=== PATIENT | male | born 1995 | race Caucasian/White ===

== ENCOUNTER → 2016-10-30 | Outpatient (CLI) | payer MEDICARE, OTHER ==
--- NOTE | 2016-10-30 15:12 | XR ---
EXAMINATION TYPE: XR hand complete RT DATE OF EXAM: 10/30/2016 3:02 PM COMPARISON: NONE HISTORY: Osteoarthritis swelling to knuckles TECHNIQUE: Single AP view right hand. Original order is for three-view bilateral hands. Patient ana er was uncooperative be on the initial single image in the procedure had to be terminated. FINDINGS: There is some soft tissue swelling over the proximal interphalangeal joint spaces of the in dex middle and ring fingers. Some mild soft tissue swelling may be at the little finger proximal inte rphalangeal joint space. The joint spaces appear preserved. No acute fractures are identified. IMPRESSION: 1. Soft tissue swelling probably at the proximal interphalangeal joint spaces of the hand. 2. Exam is limited to a single AP view right hand.
== END | disposition home or self-care (01) ==
LOC: RADXRMAIN 14:21
PROVIDERS: ATTEND Family Medicine
DX: M79.641 Pain in right hand (principal); M79.642 Pain in left hand

== ENCOUNTER → 2016-12-11 | Outpatient (CLI) | payer MEDICARE, OTHER ==
[2016-12-11 12:53] LABS: Basophils % (A) 1 %; CH 31.6; CHCM 34.1; Eosinophils % (A) 0 %; HDW 2.58; HGB 16.4 gm/dL (13.0-17.5); Luc # (Auto) 0.08; Luc % (Auto) 1; Lymphocytes # (A) 1.4 k/uL (1.0-4.8); Lymphocytes % (A) 25 %; MCH 31.3 pg (25.0-35.0); MCHC 33.6 g/dL (31.0-37.0); MCV 93.2 fL (80.0-100.0); Mean Platelet Volume 7.1; Monocytes # (A) 0.3 k/uL (0-1.0); Monocytes % (A) 6 %; Neutrophils # (A) 3.8 k/uL (1.3-7.7); Neutrophils % (A) 67 %; RBC 5.26 m/uL (4.30-5.90); RDW 12.6 % (11.5-15.5); WBC 5.7 k/uL (3.8-10.6); WBC (Perox) 5.78
[2016-12-11 13:17] LABS: Bilirubin, Delta 0.2 mg/dL (0.0-0.2); Total Bilirubin 1.1 mg/dL (0.2-1.3); Total Protein 6.9 g/dL (6.3-8.2)
[2016-12-11 20:49] LABS: Hemoglobin A1C 4.9 % (4.2-6.1)
== END | disposition home or self-care (01) ==
LOC: LABWHC1 12:31
PROVIDERS: ATTEND Nurse Practitioner Family
DX: Z51.81 Encounter for therapeutic drug level monitoring (principal); Z79.899 Other long term (current) drug therapy
CPT/HCPCS: 36415; 80076; 83036; 84146; 85025

== ENCOUNTER 2018-02-20 03:14 | Observation (INO) | payer MEDICARE, OTHER ==
[2018-02-20] MEDS ORDERED: SODIUM CHLORIDE 0.9% 1,000 ML IV ONE (03:24)
--- NOTE | 2018-02-20 03:24 | ED ---
General Adult HPI - General Stated complaint: seizure Time Seen by Provider: 02/20/18 03:15 Source: RN notes reviewed - History of Present Illness Initial comments: This is a 22-year-old male who comes to us from [facility]. Patient was sent to us because he had a 1 minute seizure which was a new onset seizure. The ER physician told me that all labs and CAT scans were normal however because it was a first-time seizure he wanted the patient to see neurology. Patient has been asymptomatic since. Patient is unable to communicate any of his problems or symptoms. No family members with the patient at this time - Related Data Home Medications Medication Instructions Recorded Confirmed Cetirizine HCl 10 mg PO HS 06/11/16 06/11/16 Clindamycin Topical Soln 1 applic TOPICAL BID 06/11/16 06/11/16 [Cleocin-T Topical Soln] FLUoxetine HCL [PROzac] 40 mg PO DAILY 06/11/16 06/11/16 Folic Acid/Multivit-Min/Lutein 1 tab PO DAILY 06/11/16 06/11/16 [Therapeutic-M Tablet] LORazepam [Ativan] 1 mg PO BID PRN 06/11/16 06/11/16 Tetracycline 250mg 250 mg PO DAILY 06/11/16 06/11/16 cloNIDine HCL [Catapres] 0.1 mg PO HS 06/11/16 06/11/16 metFORMIN HCL [Glucophage] 500 mg PO DAILY 06/11/16 06/11/16 risperiDONE 2 mg PO HS 06/11/16 06/11/16 risperiDONE [RisperDAL] 1 mg PO BID@0800,1200 06/11/16 06/11/16 Allergies Allergy/AdvReac Type Severity Reaction Status Date / Time No Known Allergies Allergy Unverified 06/11/16 10:01 Review of Systems ROS Statement: Those systems with pertinent positive or pertinent negative responses have been documented in the HPI. ROS Other: All systems not noted in ROS Statement are negative. Past Medical History Additional Past Medical History / Comment(s): autism History of Any Multi-Drug Resistant Organisms: None Reported Past Surgical History: No Surgical Hx Reported Past Psychological History: ADD/ADHD Smoking Status: Never smoker Past Alcohol Use History: None Reported Past Drug Use History: None Reported General Exam - General Exam Comments Initial Comments: GENERAL: Patient is well-developed and well-nourished. Patient is nontoxic and well- hydrated and is in no acute distress. ENT: Neck is soft and supple. No significant lymphadenopathy is noted. Oropharynx is clear. Moist mucous membranes. Neck has full range of motion without eliciting any pain. EYES: The sclera were anicteric and conjunctiva were pink and moist. Extraocular movements were intact and pupils were equal round and reactive to light. Eyelids were unremarkable. PULMONARY: Unlabored respirations. Good breath sounds bilaterally. No audible rales rhonchi or wheezing was noted. CARDIOVASCULAR: There is a regular rate and rhythm without any murmurs gallops or rubs. ABDOMEN: Soft and nontender with normal bowel sounds. SKIN: Skin is clear with no lesions or rashes and otherwise unremarkable. NEUROLOGIC: Patient is alert and oriented unable to assess since the patient does not speak. Cranial nerves II through XII are grossly intact. MUSCULOSKELETAL: Normal extremities with adequate strength and full range of motion. LYMPHATICS: No significant lymphadenopathy is noted PSYCHIATRIC: Unable to assess Disposition Clinical Impression: New onset seizure Disposition: ADMITTED IP TO THIS HOSP Referrals: Lorne Mckeon DO [Primary Care Provider] - 1-2 days Time of Disposition: 03:24
[2018-02-20] MEDS ORDERED: LORazepam 2 MG/ML INJ IV PRN ×2 (03:26)
[2018-02-20 05:34] VITALS: BMI 25.3
[2018-02-20] MEDS ORDERED: LORazepam 2 MG/ML INJ IM PRN (13:35)
[2018-02-20] MEDS ORDERED: risperiDONE 1 MG TAB PO SCH (13:45)
--- NOTE | 2018-02-20 14:14 | P.HPIM ---
History of Present Illness H&P Date: 02/20/18 Chief Complaint: Seizure This is 22 years old male with past medical history significant for autism presents to the hospital after a [facility]. Patient currently is at baseline mental status according to his father was at the bedside in no acute distress patient is nonverbal according to the father and seems to be at baseline mental status. No head trauma no fall no loss of consciousness reported after that the patient has been hemodynamically stable stable since admission initial workup including blood work and computed tomography scan of the head showed normal finding and neurology at the bedside. Review of Systems 14 systems reviewed and negative except as above Past Medical History Past Medical History: Hypertension, Osteoarthritis (OA) Additional Past Medical History / Comment(s): autism, arthritis in bilat hands/ fingers, oral diabetics to lose weight, father doesn't think pt diagnosed diabetic. History of Any Multi-Drug Resistant Organisms: None Reported Past Surgical History: No Surgical Hx Reported Additional Past Surgical History / Comment(s): extensive dental surgery Smoking Status: Never smoker Medications and Allergies Home Medications Medication Instructions Recorded Confirmed Type Cetirizine HCl 10 mg PO HS 06/11/16 02/20/18 History FLUoxetine HCL [PROzac] 40 mg PO DAILY 06/11/16 02/20/18 History Folic Acid/Multivit-Min/Lutein 1 tab PO DAILY 06/11/16 02/20/18 History [Therapeutic-M Tablet] cloNIDine HCL [Catapres] 0.1 mg PO HS 06/11/16 02/20/18 History metFORMIN HCL [Glucophage] 500 mg PO DAILY 06/11/16 02/20/18 History risperiDONE 2 mg PO HS 06/11/16 02/20/18 History risperiDONE [RisperDAL] 1 mg PO BID@0800,1200 06/11/16 02/20/18 History Minocycline HCl 100 mg PO DAILY 02/20/18 02/20/18 History Allergies Allergy/AdvReac Type Severity Reaction Status Date / Time No Known Allergies Allergy Verified 02/20/18 11:08 Physical Exam Vitals: Vital Signs Temp Pulse Pulse Resp BP BP Pulse Ox 02/20/18 06:05 96.8 F L 57 L 16 94/50 95 02/20/18 05:02 97.5 F L 78 16 96/73 97 02/20/18 04:38 97.6 F 109 H 16 132/94 94 L 02/20/18 03:38 97.8 F 78 16 107/60 97 02/20/18 03:26 98.7 F 70 16 107/60 97 Intake and Output 02/19/18 02/20/18 02/20/18 22:59 06:59 14:59 Intake Total 0 Balance 0 Intake: Oral 0 Other: # Voids 0 Weight 89.5 kg Thrombosis Risk Factor Assmnt - Choose All That Apply Any of the Below Risk Factors Present?: No Other Risk Factors: No Thrombosis Risk Factor Assessment Level: Very Low Risk Assessment and Plan Assessment: 1. Seizure breakthrough. 2. Autism. 3. Nonverbal. 4. Hypertension. 5. Seasonal ALLERGY. 7. Obesity I had long discussion with the father at the bedside regarding treatment plan what I would like to continue his home medication discontinue metformin and informed the father that neurology don't believe that he would require any anti- seizure medication as it's the first episode and we will monitor patient closely have patient's follow-up with his primary care physician outpatient within 7 days patient is stable from the medical standpoint for discharge
[2018-02-20 14:31] VITALS: BP 98/73; PULSE 83; RESP 18; TEMP 97.3
--- NOTE | 2018-02-20 14:46 | P.CNNES ---
History of Present Illness Consult date: 02/20/18 Requesting physician: Kaitlynn Meza Reason for Consult: New onset seizure History of Present Illness: Patient is a 22-year-old male who is being evaluated by the neurology service on 02/20/2018 per the request of Dr. Meza for new onset seizure. Patient has history of autism and lives in an adult foster [facility]way. Patient does visit with family on the weekends. Patient was visiting with family and playing on the laptop computer when he was noted to be making laughing sounds. When his dad looked at him he was not laughing he was trying to take a breath and having a seizure. Dad says the seizure lasted approximately a minute. He did have tonic-like movements. Patient did bite his tongue and lose bladder control during the episode. Patient's dad states he was very calm and mildly lethargic following the seizure. Patient was brought to [facility] and was transferred to [facility] for evaluation. No further seizures noted. Patient is nonverbal and history was obtained from family and chart. Computed tomography scan was done and [facility] which showed no intracranial abnormality. Patient's dad states he is not aware of any new medication that patient is taking. It is not clear what triggered the seizure. Vital signs on admission were temp 98.7, pulse 70, respiratory rate 16, blood pressure 107/60, and O2 saturation 97% on room air. Labs were done at [facility] and were reportedly within normal limits. I did review the computed tomography scan of the brain report which showed no intracranial abnormalities. At the time of my evaluation, patient's resting comfortably in bed and appears to be in no acute distress. Family at the bedside. Review of Systems REVIEW OF SYSTEMS: Otherwise unremarkable and noncontributory. Past Medical History Past Medical History: Hypertension, Osteoarthritis (OA) Additional Past Medical History / Comment(s): autism, arthritis in bilat hands/ fingers, oral diabetics to lose weight, father doesn't think pt diagnosed diabetic. History of Any Multi-Drug Resistant Organisms: None Reported Past Surgical History: No Surgical Hx Reported Additional Past Surgical History / Comment(s): extensive dental surgery Smoking Status: Never smoker Medications and Allergies Home Medications Medication Instructions Recorded Confirmed Type Cetirizine HCl 10 mg PO HS 06/11/16 02/20/18 History FLUoxetine HCL [PROzac] 40 mg PO DAILY 06/11/16 02/20/18 History Folic Acid/Multivit-Min/Lutein 1 tab PO DAILY 06/11/16 02/20/18 History [Therapeutic-M Tablet] cloNIDine HCL [Catapres] 0.1 mg PO HS 06/11/16 02/20/18 History metFORMIN HCL [Glucophage] 500 mg PO DAILY 06/11/16 02/20/18 History risperiDONE 2 mg PO HS 06/11/16 02/20/18 History risperiDONE [RisperDAL] 1 mg PO BID@0800,1200 06/11/16 02/20/18 History Minocycline HCl 100 mg PO DAILY 02/20/18 02/20/18 History Allergies Allergy/AdvReac Type Severity Reaction Status Date / Time No Known Allergies Allergy Verified 02/20/18 11:08 Physical Examination - Vital Signs Vital Signs: Vital Signs Temp Pulse Pulse Resp BP BP Pulse Ox 02/20/18 06:05 96.8 F L 57 L 16 94/50 95 02/20/18 05:02 97.5 F L 78 16 96/73 97 02/20/18 04:38 97.6 F 109 H 16 132/94 94 L 02/20/18 03:38 97.8 F 78 16 107/60 97 02/20/18 03:26 98.7 F 70 16 107/60 97 Intake and Output 02/19/18 02/20/18 02/20/18 22:59 06:59 14:59 Intake Total 0 Balance 0 Intake: Oral 0 Other: # Voids 0 1 Weight 89.5 kg PHYSICAL EXAM: GENERAL APPEARANCE: Patient is a male who appears to be in no acute distress. HEENT: Normocephalic, atraumatic, no facial asymmetry is seen. CARDIOVASCULAR: Regular rate and rhythm. ABDOMEN: nondistended. EXTREMITIES: Show no edema or clubbing. NEUROLOGICAL EXAM: Patient is awake and alert. Patient is nonverbal. Patient is autistic. A meaningful neurological exam could not be performed due to the communication barrier. He does move all 4 extremities purposefully. Patient ambulates without assistance. Assessment and Plan Plan: Impression: 1. New onset seizure 2. Autism Recommendation: It does appear the patient had a witnessed tonic-clonic seizure lasting approximately 1 minute. A postictal state as described following seizure activity. As mentioned above, computed tomography scan of the brain was negative for any intracranial abnormality. I do not feel the need to initiate antiepileptic medication at this time due to the fact this is his first seizure. I do recommend an MRI of the brain to rule out any structural cause. After speaking with family, patient will require sedation for an MRI and they would like this to be done as an outpatient. Patient will need an EEG , but again, family states due to patient's autistic behaviors he will not be able to have an EEG done without sedation. If any further seizures occur, patient will need to be placed on antiepileptic medication. This was discussed with patient's father. When reviewing patient medication, Prozac has the potential side effect of causing seizures. I will recommend possible discontinuation of Prozac and changing to a medication that does not lower seizure threshold. Patient is stable for discharge from a neurological standpoint. He needs to follow up in the office in 1-2 weeks. We will order his MRI and EEG at that time. Continue neurological checks. Continue seizure precautions. I will continue to follow with you. Thank you for allowing me to participate in the care of your patient. Feel free to call with any questions or concerns. I performed an examination of the patient and discussed the management with the ROTARY SHEAR OPERATOR. I have reviewed the ROTARY SHEAR OPERATOR notes and agree with the findings and plan of care.
== END 2018-02-20 14:37 | disposition home or self-care (01) ==
LOC: EC 03:14 → INTOOBSV 03:24 → 4MS4W 03:24
PROVIDERS: ADMIT Internal Medicine; ATTEND Internal Medicine
DX: R56.9 Unspecified convulsions (principal); F84.0 Autistic disorder; F90.9 Attention-deficit hyperactivity disorder, unspecified type; I10 Essential (primary) hypertension; M19.041 Primary osteoarthritis, right hand; M19.042 Primary osteoarthritis, left hand; F80.9 Developmental disorder of speech and language, unspecified; E66.9 Obesity, unspecified; Z68.25 Body mass index [BMI] 25.0-25.9, adult; J30.2 Other seasonal allergic rhinitis; Z79.2 Long term (current) use of antibiotics; Z79.84 Long term (current) use of oral hypoglycemic drugs; Z79.899 Other long term (current) drug therapy
CPT/HCPCS: 99285 ×2; G0378

== ENCOUNTER → 2019-02-18 | Outpatient (CLI) | payer MEDICARE, OTHER ==
[2019-02-18 11:34] LABS: Basophils % (A) 1 %; Eosinophils # (A) 0.1 k/uL (0-0.7); Eosinophils % (A) 1 %; HCT 48.6 % (39.0-53.0); HGB 16.2 gm/dL (13.0-17.5); Lymphocytes # (A) 1.5 k/uL (1.0-4.8); Lymphocytes % (A) 28 %; MCH 30.4 pg (25.0-35.0); MCHC 33.2 g/dL (31.0-37.0); MCV 91.4 fL (80.0-100.0); Monocytes # (A) 0.3 k/uL (0-1.0); Monocytes % (A) 5 %; Neutrophils # (A) 3.2 k/uL (1.3-7.7); Neutrophils % (A) 62 %; Platelet Count 175 k/uL (150-450); RBC 5.32 m/uL (4.30-5.90); RDW 13.7 % (11.5-15.5); WBC 5.2 k/uL (3.8-10.6)
[2019-02-18 12:02] LABS: Albumin 4.2 g/dL (3.5-5.0); Bilirubin, Delta 0.3 mg/dL (0.0-0.2); Bilirubin,Unconjugated 0.7 mg/dL (0.0-1.1)
[2019-02-18 12:19] LABS: T4, Free (Free Thyroxine) 0.88 ng/dL (0.78-2.19)
[2019-02-18 19:55] LABS: Hemoglobin A1C 4.8 % (4.0-6.0)
== END | disposition home or self-care (01) ==
LOC: LABT 10:29
PROVIDERS: ATTEND Nurse Practitioner Family
DX: Z51.81 Encounter for therapeutic drug level monitoring (principal); Z79.899 Other long term (current) drug therapy
CPT/HCPCS: 80061; 80076; 82947; 83036; 84439; 84443; 85025

== ENCOUNTER 2019-03-21 17:17 | Emergency (ER) | payer MEDICARE, OTHER ==
[2019-03-21 17:33] VITALS: BP 120/59; PULSE 88; RESP 24
--- NOTE | 2019-03-21 18:08 | ED ---
General Adult HPI - General Chief complaint: Wound/Laceration Stated complaint: hit head Time Seen by Provider: 03/21/19 17:28 Source: patient, RN notes reviewed, Caregiver Mode of arrival: ambulatory Limitations: no limitations - History of Present Illness Initial comments: 23-year-old nonverbal male presents to the emergency department for laceration. Patient hit his head on the top of a door frame and it caused a laceration. Father states patient is up-to-date on immunizations including tetanus. No loss of consciousness, no vomiting, patient does not seem to be complaining of any pain. Father states the last time he had to have any procedures done patient had to be sedated. States patient does not like being touched at all.Patient has no other complaints at this time including shortness of breath, chest pain, abdominal pain, nausea or vomiting, headache, or visual changes. - Related Data Home Medications Medication Instructions Recorded Confirmed Cetirizine HCl 10 mg PO HS 06/11/16 02/20/18 FLUoxetine HCL [PROzac] 40 mg PO DAILY 06/11/16 02/20/18 Folic Acid/Multivit-Min/Lutein 1 tab PO DAILY 06/11/16 02/20/18 [Therapeutic-M Tablet] cloNIDine HCL [Catapres] 0.1 mg PO HS 06/11/16 02/20/18 metFORMIN HCL [Glucophage] 500 mg PO DAILY 06/11/16 02/20/18 risperiDONE 2 mg PO HS 06/11/16 02/20/18 risperiDONE [RisperDAL] 1 mg PO BID@0800,1200 06/11/16 02/20/18 Minocycline HCl [Minocin] 100 mg PO DAILY 02/20/18 02/20/18 Allergies Allergy/AdvReac Type Severity Reaction Status Date / Time No Known Allergies Allergy Verified 02/20/18 11:08 Review of Systems ROS Statement: Those systems with pertinent positive or pertinent negative responses have been documented in the HPI. ROS Other: All systems not noted in ROS Statement are negative. Past Medical History Past Medical History: Hypertension, Osteoarthritis (OA) Additional Past Medical History / Comment(s): autism, arthritis in bilat hands/fingers, oral diabetics to lose weight, father doesn't think pt diagnosed diabetic. History of Any Multi-Drug Resistant Organisms: None Reported Past Surgical History: No Surgical Hx Reported Additional Past Surgical History / Comment(s): extensive dental surgery Past Psychological History: ADD/ADHD Smoking Status: Never smoker General Exam Limitations: no limitations General appearance: alert, in no apparent distress Head exam: Absent: atraumatic (patient has a 1 cm lac noted to the superficial aspect of the head) Eye exam: Present: normal appearance, PERRL, EOMI. Absent: scleral icterus, conjunctival injection, periorbital swelling ENT exam: Present: normal exam, mucous membranes moist Neck exam: Present: normal inspection, full ROM. Absent: tenderness, meningismus, lymphadenopathy Respiratory exam: Present: normal lung sounds bilaterally. Absent: respiratory distress, wheezes, rales, rhonchi, stridor Cardiovascular Exam: Present: regular rate, normal rhythm, normal heart sounds. Absent: systolic murmur, diastolic murmur, rubs, gallop, clicks Neurological exam: Present: alert, oriented X3, CN II-XII intact Psychiatric exam: Present: normal affect, normal mood Course Vital Signs 03/21/19 17:29 Pulse Rate 88 Respiratory 24 Rate Blood Pressure 120/59 O2 Sat by Pulse 97 Oximetry Medical Decision Making - Medical Decision Making 23-year-old male presents to the emergency department for treatment of laceration to the top of the head. Patient hit his head on a door frame. No loss of consciousness. No focal neuro deficits. Discussed with her and father states that when patient has to procedures then he is to be sedated. Laceration is about 1 cm, non-gaping. Discussed with father and at this point I offered to try one staple. However patient does not like being touched. Father states that he would prefer to leave it open if that is possible. I do think that is fine as this is not a gaping wound is only 1 cm. I offered to clean the area but father states that he usually gets showered by staff at his skilled nursing and enjoys this. States he would rather just take him back there so we could've a shower to have it cleaned rather than try to touch him here. I do think that is reasonable as well. Patient is up-to-date on tetanus. Discussed following up with primary care and monitoring for signs of infection. Discussed returning here for any worsening symptoms. Disposition Clinical Impression: Laceration Disposition: HOME SELF-CARE Condition: Good Instructions (If sedation given, give patient instructions): Laceration (ED) Additional Instructions: Please keep the area clean. Monitor for signs of infection such as spreading or streaking redness. Return here if you have any worsening symptoms. Is patient prescribed a controlled substance at d/c from ED?: No Referrals: Lorne Mckeon DO [Primary Care Provider] - 1-2 days Time of Disposition: 18:07
== END 2019-03-21 18:11 | disposition home or self-care (01) ==
LOC: EC 17:17
DX: S01.01XA Laceration without foreign body of scalp, initial encounter (principal); I10 Essential (primary) hypertension; F90.9 Attention-deficit hyperactivity disorder, unspecified type; F84.0 Autistic disorder; Z79.84 Long term (current) use of oral hypoglycemic drugs; Z79.899 Other long term (current) drug therapy; W22.8XXA Striking against or struck by other objects, initial encounter
CPT/HCPCS: 99282

== ENCOUNTER 2019-04-28 16:24 | Observation (INO) | payer MEDICARE, OTHER ==
[2019-04-28 17:12] LABS: Basophils % (A) 0 %; Eosinophils # (A) 0.1 k/uL (0-0.7); Eosinophils % (A) 1 %; HCT 46.7 % (39.0-53.0); HGB 15.7 gm/dL (13.0-17.5); Lymphocytes # (A) 1.4 k/uL (1.0-4.8); Lymphocytes % (A) 24 %; MCH 30.5 pg (25.0-35.0); MCHC 33.6 g/dL (31.0-37.0); MCV 90.9 fL (80.0-100.0); Mean Platelet Volume 6.6; Monocytes # (A) 0.3 k/uL (0-1.0); Monocytes % (A) 5 %; Neutrophils % (A) 68 %; Platelet Count 182 k/uL (150-450); RBC 5.14 m/uL (4.30-5.90); RDW 12.8 % (11.5-15.5); WBC 5.9 k/uL (3.8-10.6)
[2019-04-28 17:19] LABS: ALT 41 U/L (21-72); AST 42 U/L (17-59); African American GFR (CKD) >90 (>60 ml/min/1.73 sqM); Albumin 4.3 g/dL (3.5-5.0); Alkaline Phosphatase 65 U/L (38-126); Anion Gap 8 mmol/L; Blood Urea Nitrogen 10 mg/dL (9-20); Calcium 9.5 mg/dL (8.4-10.2); Carbon Dioxide 29 mmol/L (22-30); Chloride 105 mmol/L (98-107); Glucose 88 mg/dL (74-99); Potassium 4.5 mmol/L (3.5-5.1); Sodium 142 mmol/L (137-145); Total Bilirubin 0.8 mg/dL (0.2-1.3); Total Protein 6.8 g/dL (6.3-8.2)
--- NOTE | 2019-04-28 18:27 | CT ---
EXAMINATION TYPE: CT brain michaeline wo con DATE OF EXAM: 04/28/2019 COMPARISON: None HISTORY: Seizure CT DLP: 1397.7 mGycm Automated exposure control for dose reduction was used. TECHNIQUE: CT scan of the head and cervical spine are performed without contrast. FINDINGS: Ventricles and sulci appear normal. There is no mass effect nor midline shift. There is n o sign of intracranial hemorrhage. There is some debris in the external auditory canals. Calvarium is intact. The cervical vertebra have normal spacing and alignment. Posterior elements are intact. Facet joints appear normal. Skull base is intact. Prevertebral soft tissues appear normal. IMPRESSION: Negative CT scan of the brain. Negative CT scan cervical spine.
[2019-04-28] MEDS ORDERED: NALOXONE 0.4 MG/ML 1 ML VIAL IV PRN (18:58)
[2019-04-28] MEDS ORDERED: LORazepam 1 MG TAB PO STA (19:09)
--- NOTE | 2019-04-28 19:09 | ED ---
General Adult HPI - General Chief complaint: Seizure Stated complaint: Seizure Time Seen by Provider: 04/28/19 16:38 Source: EMS, RN notes reviewed, old records reviewed Mode of arrival: EMS Limitations: language barrier - History of Present Illness Initial comments: 23-year-old male patient, autistic, nonverbal presents ED for seizure. Patient was reportedly antibiotics when he had approximately 3 minute tonic-clonic seizure. Patient did not have any reported head trauma. Patient reportedly had one prior seizure weeks ago for which she was admitted. His not currently on any antiepileptic medication. Limited history taking ability. Systemic: Pt denies fatigue, fever/chills, rash. Pt denies weakness, night sweats, weight loss. Neuro: Pt denies headache, visual disturbances, syncope or pre-syncope. HEENT: Pt denies ocular discharge or irritation, otalgia, rhinorrhea, pharyngitis or notable lymphadenopathy. Cardiopulmonary: Pt denies chest pain, SOB, heart palpitations, dyspnea on exertion. Abdominal/GI: Pt denies abdominal pain, n/v/d. : Pt denies dysuria, burning w/ urination, frequency/urgency. Denies new onset urinary or bowel incontinence. MSK: Pt denies myalgia, loss of strength or function in extremities. Neuro: Pt denies new onset weakness, paresthesias. - Related Data Home Medications Medication Instructions Recorded Confirmed Cetirizine HCl 10 mg PO HS 06/11/16 02/20/18 FLUoxetine HCL [PROzac] 40 mg PO DAILY 06/11/16 02/20/18 Folic Acid/Multivit-Min/Lutein 1 tab PO DAILY 06/11/16 02/20/18 [Therapeutic-M Tablet] cloNIDine HCL [Catapres] 0.1 mg PO HS 06/11/16 02/20/18 metFORMIN HCL [Glucophage] 500 mg PO DAILY 06/11/16 02/20/18 risperiDONE 2 mg PO HS 06/11/16 02/20/18 risperiDONE [RisperDAL] 1 mg PO BID@0800,1200 06/11/16 02/20/18 Minocycline HCl [Minocin] 100 mg PO DAILY 02/20/18 02/20/18 Allergies Allergy/AdvReac Type Severity Reaction Status Date / Time No Known Allergies Allergy Verified 02/20/18 11:08 Review of Systems ROS Statement: Those systems with pertinent positive or pertinent negative responses have been documented in the HPI. ROS Other: All systems not noted in ROS Statement are negative. Past Medical History Past Medical History: Hypertension, Osteoarthritis (OA) Additional Past Medical History / Comment(s): autism, arthritis in bilat hands/f ingers, oral diabetics to lose weight, father doesn't think pt diagnosed diabetic. History of Any Multi-Drug Resistant Organisms: None Reported Past Surgical History: No Surgical Hx Reported Additional Past Surgical History / Comment(s): extensive dental surgery Past Psychological History: ADD/ADHD Smoking Status: Never smoker General Exam - General Exam Comments Initial Comments: Constitutional: NAD, AOX3, Pt has pleasant affect. HEENT: NC/AT, trachea midline, neck supple, no lymphadenopathy. Posterior pharynx non erythematous, without exudates. External ears appear normal, without discharge. Mucous membranes moist. Eyes PERRLA, EOM intact. There is no scleral icterus. No pallor noted. Cardiopulmonary: RRR, no murmurs, rubs or gallops, no JVD noted. Lungs CTAB in anterior and posterior payton. No peripheral edema. Abdominal exam: Abdomen soft and non-distended. Abdomen non-tender to palpation in all 4 quadrants. Bowel sounds active in LLQ. No hepatosplenomegaly. No ecchymosis Neuro: CN II-XII grossly intact. No nuchal rigidity. No raccon eyes, no levi sign, no hemotympanum. No cervical spinal tenderness. MSK: No posterior calf tenderness bilaterally, homans sign negative bilaterally. Posterior tibialis and radial pulse +2 bilaterally. Sensation intact in upper and lower extremities. Full active ROM in upper and lower extremities, 5/5 stregnth. Limitations: language barrier Course Vital Signs 04/28/19 16:26 Pulse Rate 80 Respiratory 16 Rate Blood Pressure 112/73 O2 Sat by Pulse 95 Oximetry Medical Decision Making - Medical Decision Making 23-year-old male patient, autistic, nonverbal presents ED for seizure. Patient was reportedly antibiotics when he had approximately 3 minute tonic-clonic seizure. Patient did not have any reported head trauma. Patient reportedly had one prior seizure weeks ago for which she was admitted. His not currently on any antiepileptic medication. Limited history taking ability. Pt VSS. Physical exam did not display acute pathology. Of investigations non-impressive. CT brain and C-spine did not display acute pathology. EKG not concerning for acute ischemia. Patient be admitted for neurology consultation. Case discussed with Dr. Phan. - Lab Data Result diagrams: 04/28/19 17:02 04/28/19 17:02 Lab Results 04/28/19 04/28/19 Range/Units 17:02 17:02 WBC 5.9 (3.8-10.6) k/uL RBC 5.14 (4.30-5.90) m/uL Hgb 15.7 (13.0-17.5) gm/dL Hct 46.7 (39.0-53.0) % MCV 90.9 (80.0-100.0) fL MCH 30.5 (25.0-35.0) pg MCHC 33.6 (31.0-37.0) g/dL RDW 12.8 (11.5-15.5) % Plt Count 182 (150-450) k/uL Neutrophils % 68 % Lymphocytes % 24 % Monocytes % 5 % Eosinophils % 1 % Basophils % 0 % Neutrophils # 4.0 (1.3-7.7) k/uL Lymphocytes # 1.4 (1.0-4.8) k/uL Monocytes # 0.3 (0-1.0) k/uL Eosinophils # 0.1 (0-0.7) k/uL Basophils # 0.0 (0-0.2) k/uL Sodium 142 (137-145) mmol/L Potassium 4.5 (3.5-5.1) mmol/L Chloride 105 (98-107) mmol/L Carbon Dioxide 29 (22-30) mmol/L Anion Gap 8 mmol/L BUN 10 (9-20) mg/dL Creatinine 0.91 (0.66-1.25) mg/dL Est GFR (CKD-EPI)AfAm >90 (>60 ml/min/1.73 sqM) Est GFR (CKD-EPI)NonAf >90 (>60 ml/min/1.73 sqM) Glucose 88 (74-99) mg/dL Calcium 9.5 (8.4-10.2) mg/dL Total Bilirubin 0.8 (0.2-1.3) mg/dL AST 42 (17-59) U/L ALT 41 (21-72) U/L Alkaline Phosphatase 65 (38-126) U/L Total Protein 6.8 (6.3-8.2) g/dL Albumin 4.3 (3.5-5.0) g/dL Disposition Clinical Impression: Seizure Disposition: ADMITTED IP TO THIS [facility] Condition: Serious Is patient prescribed a controlled substance at d/c from ED?: No Referrals: Lorne Mckeon DO [Primary Care Provider] - 1-2 days
--- NOTE | 2019-04-28 19:53 | ED ---
Medical Decision Making - Lab Data Result diagrams: 04/28/19 17:02 04/28/19 17:02 Lab Results 04/28/19 04/28/19 Range/Units 17:02 17:02 WBC 5.9 (3.8-10.6) k/uL RBC 5.14 (4.30-5.90) m/uL Hgb 15.7 (13.0-17.5) gm/dL Hct 46.7 (39.0-53.0) % MCV 90.9 (80.0-100.0) fL MCH 30.5 (25.0-35.0) pg MCHC 33.6 (31.0-37.0) g/dL RDW 12.8 (11.5-15.5) % Plt Count 182 (150-450) k/uL Neutrophils % 68 % Lymphocytes % 24 % Monocytes % 5 % Eosinophils % 1 % Basophils % 0 % Neutrophils # 4.0 (1.3-7.7) k/uL Lymphocytes # 1.4 (1.0-4.8) k/uL Monocytes # 0.3 (0-1.0) k/uL Eosinophils # 0.1 (0-0.7) k/uL Basophils # 0.0 (0-0.2) k/uL Sodium 142 (137-145) mmol/L Potassium 4.5 (3.5-5.1) mmol/L Chloride 105 (98-107) mmol/L Carbon Dioxide 29 (22-30) mmol/L Anion Gap 8 mmol/L BUN 10 (9-20) mg/dL Creatinine 0.91 (0.66-1.25) mg/dL Est GFR (CKD-EPI)AfAm >90 (>60 ml/min/1.73 sqM) Est GFR (CKD-EPI)NonAf >90 (>60 ml/min/1.73 sqM) Glucose 88 (74-99) mg/dL Calcium 9.5 (8.4-10.2) mg/dL Total Bilirubin 0.8 (0.2-1.3) mg/dL AST 42 (17-59) U/L ALT 41 (21-72) U/L Alkaline Phosphatase 65 (38-126) U/L Total Protein 6.8 (6.3-8.2) g/dL Albumin 4.3 (3.5-5.0) g/dL - EKG Data -: EKG Interpreted by Me EKG Comments: Surgical rate 72, painful and 54, QR is 90, QT/QTC 336/3677. No sinus rhythm, normal EKG. Disposition Clinical Impression: Seizure Disposition: ADMITTED IP TO THIS HOSP Condition: Serious Is patient prescribed a controlled substance at d/c from ED?: No
[2019-04-28] MEDS ORDERED: levETIRAcetam IV 1,000 MG in SALINE 1 100ML.BAG IVPB STA (20:20)
[2019-04-28] MEDS ORDERED: MAGNESIUM HYDROXIDE 2,400 MG/10 ML CUP PO PRN (22:13)
[2019-04-28] MEDS ORDERED: ACETAMINOPHEN TAB 325 MG TAB PO PRN (22:13)
[2019-04-28] MEDS ORDERED: [UNRECOGNIZED DRUG - OTHER] PO PRN (22:13)
[2019-04-28] MEDS ORDERED: IBUPROFEN 200 MG TAB PO PRN (22:13)
[2019-04-28] MEDS ORDERED: LORazepam 1 MG TAB PO PRN (22:13)
[2019-04-28] MEDS ORDERED: LORazepam 2 MG/ML INJ IV PRN (22:18)
[2019-04-28] MEDS: cloNIDine HCL 0.2 MG TAB PO SCH (23:35)
[2019-04-28] MEDS: LORATADINE 10 MG TAB PO SCH (23:35)
[2019-04-28] MEDS: risperiDONE 1 MG TAB PO SCH (23:35)
[2019-04-29] MEDS ORDERED: levETIRAcetam IV 1,000 MG in SALINE 1 100ML.BAG IVPB SCH (09:00)
[2019-04-29] MEDS: MINOCYCLINE 50 MG CAP PO SCH (10:30)
[2019-04-29] MEDS: FLUoxetine HCL 20 MG CAP PO SCH ×2 (10:31)
[2019-04-29] MEDS: MULTIVITAMINS, THERA 1 EACH TAB PO SCH (10:31)
[2019-04-29] MEDS: levETIRAcetam 500 MG TAB PO SCH ×2 (10:31→22:02)
[2019-04-29] MEDS: NON-FORMULARY DRUG (Clindamycin Topical Soln 1 APPLIC) TOPICAL SCH (10:32)
[2019-04-29] MEDS: risperiDONE 1 MG TAB PO SCH ×2 (11:00→15:12)
--- NOTE | 2019-04-29 11:21 | P.CNNES ---
History of Present Illness Consult date: 04/29/19 Requesting physician: Payam Phan Reason for Consult: Recurrent seizures Chief complaint: Seizure History of Present Illness: This is a 23 yo male h/o autism who was evaluated by neurology back in 02/2018 for new-onset seizure. Patient was apparently visiting with family and playing on the laptop computer when he was noted to be making laughing sounds. When his father looked at him, he was no longer laughing, trying to take a breath and then went on to have a seizure. The witnessed seizure lasted around 1 minute. He did have tonic activity. There was tongue biting and bladder incontinence. He was reportedly very calm and mildly lethargic following the ictal event. At that time, CT of the head was done that did not show acute intracranial abnormalities. MRI brain and EEG were not done due to the fact that the patient would need to be heavily sedated, and the family did not want to pursue that route. His neurologic exam was noted to be nonfocal. He was not placed on anticonvulsant therapy at that time. But, neurology did comment that if the patient went on to have further seizures, then he would need to be placed on antiepileptic medication. Fast forwarding to 04/28/2019, patient presented to our emergency room after a 3 minute tonic-clonic seizure. There was no report of head trauma. He was reportedly on the antibiotics, details unknown. He was loaded and continued on levetiracetam. No further seizure activity has been observed since admission. The patient cannot provide any meaningful history. My his stroke or information was obtained by reviewing available medical records in EMR. Review of Systems Unable to obtain from patient due to his autism/non-verbal state Past Medical History Past Medical History: Hypertension, Osteoarthritis (OA), Seizure Disorder Additional Past Medical History / Comment(s): autism, arthritis in bilat hands/fingers, oral diabetics to lose weight, father doesn't think pt diagnosed diabetic, history of seizures. History of Any Multi-Drug Resistant Organisms: None Reported Past Surgical History: No Surgical Hx Reported Additional Past Surgical History / Comment(s): extensive dental surgery Past Psychological History: ADD/ADHD Additional Psychological History / Comment(s): mid functional Autism Smoking Status: Never smoker Past Alcohol Use History: None Reported Past Drug Use History: None Reported Medications and Allergies Home Medications Medication Instructions Recorded Confirmed Type Cetirizine HCl 10 mg PO HS@2100 06/11/16 04/28/19 History FLUoxetine HCL [PROzac] 40 mg PO DAILY@0800 06/11/16 04/28/19 History Folic Acid/Multivit-Min/Lutein 1 tab PO DAILY@0800 06/11/16 04/28/19 History [Therapeutic-M Tablet] risperiDONE 2 mg PO HS@2100 06/11/16 04/28/19 History risperiDONE [RisperDAL] 1 mg PO BID@0800,1200 06/11/16 04/28/19 History Minocycline HCl [Minocin] 100 mg PO DAILY@0800 02/20/18 04/28/19 History Acetaminophen Tab [Tylenol Tab] 650 mg PO Q4H PRN 04/28/19 04/28/19 History Clindamycin Topical Soln 1 applic TOPICAL BID@0800,2100 04/28/19 04/28/19 History [Cleocin-T Topical Soln] FLUoxetine HCL [PROzac] 20 mg PO DAILY@0800 04/28/19 04/28/19 History Ibuprofen [Motrin Ib] 200 mg PO Q6H PRN 04/28/19 04/28/19 History Cristiano-Tin Liquid 1 dose PO DIRECTED PRN 04/28/19 04/28/19 History LORazepam [Ativan] 1 mg PO DAILY PRN 04/28/19 04/28/19 History Magnesium Hydroxide [Milk of 2,400 mg PO DAILY PRN 04/28/19 04/28/19 History Magnesia] cloNIDine HCL [Catapres] 0.2 mg PO HS@209904/28/19 04/28/19 History Allergies Allergy/AdvReac Type Severity Reaction Status Date / Time No Known Allergies Allergy Verified 04/28/19 19:21 Physical Examination - Vital Signs Vital Signs: Vital Signs Temp Pulse Pulse Resp BP BP BP 04/29/19 08:10 97.4 F L 63 16 91/75 04/29/19 05:00 97.9 F 63 15 04/28/19 21:04 97.7 F 66 20 102/60 04/28/19 20:06 98.0 F 60 20 117/66 04/28/19 19:57 70 20 116/74 04/28/19 19:08 98.6 F 04/28/19 16:26 80 16 112/73 Pulse Ox 04/29/19 08:10 97 04/29/19 05:00 97 04/28/19 21:04 98 04/28/19 20:06 98 04/28/19 19:57 04/28/19 19:08 04/28/19 16:26 95 Intake and Output 04/28/19 04/29/19 04/29/19 22:59 06:59 14:59 Other: Voiding Method Toilet Diaper # Voids 0 # Bowel Movements 1 Weight 95.254 kg Gen NAD Pleasant and cooperative HEENT NCAT Sclera without icterus O/P clear Neck Supple No carotid bruit Cor RRR no m/r/g Lungs CTAB Abd Soft NTND +BS Ext Warm to touch No edema Neuro MS Somnolent but arousable to normal voice and tactile stimuli Follows one-step commands non-verbal CN PERRL VFF no APD EOMI no nystagmus or DARLIN No facial asymmetry Masseter's symmetric Hearing intact to normal voice bilaterally Equal elevation of palate Tongue midline Sym SCM bilaterally Motor Normal bulk Some paratonia No tremors BANDA x4 against resistance Sens Intact to LT x4 No neglect Coord Unable to assess DTRs 2+/4 sym throughout Toes downgoing bilaterally No clonus at achilles Gait Deferred Results - Laboratory Findings CBC and BMP: 04/28/19 17:02 04/28/19 17:02 - Diagnostic Findings Additional findings: CT Head/C-spine wo cont 04/28/19. No ICH. No cervical fracture. Nil acute. I have reviewed neuroimages myself. Assessment and Plan Assessment: Recurrent apparently unprovoked seizures, unless he was taking an antibiotic that's classically associated with lowering seizure threshold Plan: -Continue LEV 500mg q12h CrCl >80 -Seizure precautions -Per records MRI Brain and EEG were not obtained previously due to his inability to be still without heavy sedation -Patient does not drive, though common sense should be exercised in avoiding any physical activity that may endanger patient and/or others should he have recurrent seizure activity -DVT prophylaxis -If he has no further seizure activity >24 hours, may discharge from acute care and plan for follow-up with outpatient neurology within one week -Neurology will be available again on 05/02/19. Thank you for this consultation. Please call with ?. Time with Patient: Greater than 30 (Time spent in direct patient care/coordination of care: 70 minutes)
--- NOTE | 2019-04-29 13:13 | P.HPIM ---
History of Present Illness H&P Date: 04/29/19 This is a 23-year-old female patient of Dr. Mckeon with past medical history of autism, seizure disorder, resides in a nursing home. Baseline patient is nonverbal. Patient had his first seizure in February 2018 and was not placed on anti-epileptic medication at that time. Patient was seen by Dr. Horan with concern that Prozac with decreased seizure threshold. Patient came into [facility] emergency center for evaluation of seizure. Patient apparently had a 3 minute tonic-clonic seizure. No reported head trauma. Computed tomography scan of the brain and see spine negative. CBC and CMP unremarkable. Patient was given 1 dose of oral Ativan 1 mg and started on IV Keppra. Patient has received 1 dose of 1000 mg. Patient was admitted to the [facility] floor. This morning, patient has pulled 5 IVs out and is pulling off rn cardiac. Both will be discontinued. We will attempt to administer Keppra orally. Consult in place with neurology. Patient has been seen by Dr. Washington with recommendations for Keppra 500 mg every 12 hours, continue seizure precautions. If patient has no further seizure activity greater than 24 hours he is cleared for discharge home with neurology follow-up in one week. Review of Systems ROS unobtainable: due to mental status Past Medical History Past Medical History: Hypertension, Osteoarthritis (OA), Seizure Disorder Additional Past Medical History / Comment(s): autism, arthritis in bilat hands/fingers, oral diabetics to lose weight, father doesn't think pt diagnosed diabetic, history of seizures. History of Any Multi-Drug Resistant Organisms: None Reported Past Surgical History: No Surgical Hx Reported Additional Past Surgical History / Comment(s): extensive dental surgery Past Psychological History: ADD/ADHD Additional Psychological History / Comment(s): mid functional Autism Smoking Status: Never smoker Past Alcohol Use History: None Reported Past Drug Use History: None Reported - Past Family History Father Additional Family Medical History / Comment(s): Unable to obtain family history due to patient's status Medications and Allergies Home Medications Medication Instructions Recorded Confirmed Type Cetirizine HCl 10 mg PO HS@2100 06/11/16 04/28/19 History FLUoxetine HCL [PROzac] 40 mg PO DAILY@0800 06/11/16 04/28/19 History Folic Acid/Multivit-Min/Lutein 1 tab PO DAILY@0800 06/11/16 04/28/19 History [Therapeutic-M Tablet] risperiDONE 2 mg PO HS@2100 06/11/16 04/28/19 History risperiDONE [RisperDAL] 1 mg PO BID@0800,1200 06/11/16 04/28/19 History Minocycline HCl [Minocin] 100 mg PO DAILY@0800 02/20/18 04/28/19 History Acetaminophen Tab [Tylenol Tab] 650 mg PO Q4H PRN 04/28/19 04/28/19 History Clindamycin Topical Soln 1 applic TOPICAL BID@0800,2100 04/28/19 04/28/19 H istory [Cleocin-T Topical Soln] FLUoxetine HCL [PROzac] 20 mg PO DAILY@0800 04/28/19 04/28/19 History Ibuprofen [Motrin Ib] 200 mg PO Q6H PRN 04/28/19 04/28/19 History Cristiano-Tin Liquid 1 dose PO DIRECTED PRN 04/28/19 04/28/19 History LORazepam [Ativan] 1 mg PO DAILY PRN 04/28/19 04/28/19 History Magnesium Hydroxide [Milk of 2,400 mg PO DAILY PRN 04/28/19 04/28/19 History Magnesia] cloNIDine HCL [Catapres] 0.2 mg PO HS@2100 04/28/19 04/28/19 History Allergies Allergy/AdvReac Type Severity Reaction Status Date / Time No Known Allergies Allergy Verified 04/28/19 19:21 Physical Exam Vitals: Vital Signs Temp Pulse Pulse Resp BP BP BP 04/29/19 05:00 97.9 F 63 15 04/28/19 21:04 97.7 F 66 20 102/60 04/28/19 20:06 98.0 F 60 20 117/66 04/28/19 19:57 70 20 116/74 04/28/19 19:08 98.6 F 04/28/19 16:26 80 16 112/73 Pulse Ox 04/29/19 05:00 97 04/28/19 21:04 98 04/28/19 20:06 98 04/28/19 19:57 04/28/19 19:08 04/28/19 16:26 95 Intake and Output 04/28/19 04/29/19 04/29/19 22:59 06:59 14:59 Other: Voiding Method Toilet Diaper # Voids 0 # Bowel Movements 1 Weight 95.254 kg Gen: This is a 23-year-old obese male. He is resting in bed and appears to be comfortable. Patient is nonverbal. HEENT: Head is atraumatic, normocephalic. Pupils equal, round. Sclerae is anicteric. NECK: Supple. No JVD. No lymphadenopathy. No thyromegaly. LUNGS: Clear to auscultation. No wheezes or rhonchi. No intercostal retractions. HEART: Regular rate and rhythm. No murmur. ABDOMEN: Soft. Bowel sounds are present. No masses. No tenderness. EXTREMITIES: No pedal edema. No calf tenderness. NEUROLOGICAL: Patient is awake, alert . Cranial nerves 2 through 12 are grossly intact. Results CBC & Chem 7: 04/28/19 17:02 04/28/19 17:02 Thrombosis Risk Factor Assmnt - Choose All That Apply Any of the Below Risk Factors Present?: No Other Risk Factors: No Other congenital or acquired thrombophilia - If yes, enter type in comment: No Thrombosis Risk Factor Assessment Level: Very Low Risk Assessment and Plan Plan: 1. Seizure disorder. Patient transitioned to oral Keppra 500 mg twice daily. Neurology consult appreciated. Continue seizure precautions. No further workup. Plan for discharge home tomorrow morning if no recurrence of seizure activity. 2. Autism, nonverbal. Continue Prozac 60 mg daily, Ativan as needed, Risperdal 1 mg at 8 AM and 1200, 2 mg at bedtime. 3. Hypertension. Continue clonidine 0.2 mg at bedtime 4. Seasonal ALLERGIES. Continue Claritin. 5. Obesity. 6. DVT prophylaxis. RONALD huston. Patient will be admitted to the hospital for a minimum of 2 night stay. Discharge plan: Return to nursing home on Thursday. Impression and plan of care have been directed as dictated by the signing physician. Destiny Tolbert nurse practitioner acting as scribe for signing physician.
[2019-04-29 13:35] VITALS: BMI 28.5
[2019-04-29] MEDS: LORATADINE 10 MG TAB PO SCH (22:03)
[2019-04-29] MEDS: cloNIDine HCL 0.2 MG TAB PO SCH (22:03)
[2019-04-30 01:18] VITALS: BP 98/58; PULSE 50; RESP 15; TEMP 97.8
[2019-04-30] MEDS: NON-FORMULARY DRUG (Clindamycin Topical Soln 1 APPLIC) TOPICAL SCH ×2 (01:20→09:18)
[2019-04-30] MEDS: risperiDONE 1 MG TAB PO SCH ×3 (01:50→12:13)
[2019-04-30] MEDS: FLUoxetine HCL 20 MG CAP PO SCH ×2 (09:16)
[2019-04-30] MEDS: MULTIVITAMINS, THERA 1 EACH TAB PO SCH (09:16)
[2019-04-30] MEDS: MINOCYCLINE 50 MG CAP PO SCH (09:17)
[2019-04-30] MEDS: levETIRAcetam 500 MG TAB PO SCH (09:18)
--- NOTE | 2019-04-30 22:44 | P.DS ---
Providers Date of admission: 04/28/19 18:51 Expected date of discharge: 04/30/19 Attending physician: Osito Fitch Consults: 04/28/19 20:20 Consult Physician Routine Consulting Provider: Hilton Washington Consult Reason/Comments: recurrent seizurew Do you want consulting provider notified?: Yes [facility] care physician[facility] [place] [facility] Course: This is a 23-year-old female patient of Dr. Mckeon with past medical history of autism, seizure disorder, [facility]. Baseline patient is nonverbal. Patient had his first seizure in February 2018 and was not placed on anti-epileptic medication at that time. Patient was seen by Dr. Horan with concern that Prozac with decreased seizure threshold. Patient came into [facility] emergency center for evaluation of seizure. Patient apparently had a 3 minute tonic-clonic seizure. No reported head trauma. Computed tomography scan of the brain and see spine negative. CBC and CMP unremarkable. Patient was given 1 dose of oral Ativan 1 mg and started on IV Keppra. Patient has received 1 dose of 1000 mg. Patient was admitted to the [facility] floor. This morning, patient has pulled 5 IVs out and is pulling off monitoring and evaluation advisor. Both will be discontinued. We will attempt to administer Keppra orally. Consult in place with neurology. Patient has been seen by Dr. Washington with recommendations for Keppra 500 mg every 12 hours, continue seizure precautions. If patient has no further seizure activity greater than 24 hours he is cleared for discharge home with neurology follow-up in one week. 04/30, patient continues to do well neurologically, no seizures within the past 24 hours, patient is on Keppra 500 mg every 12 hours with no relapse, seems to be elusive with conversation today, secondary to autistic disorder, remains to be nonverbal, no events for aspiration, and no motor weakness over the past 24 hours, patient is going to be discharged to [facility] [employer] [facility] [employer] today, outpa tient follow-up with neurology, Dr. Horan Final diagnosis At [facility] 1. Seizure disorder. Patient transitioned to oral Keppra 500 mg twice daily. Neurology consult appreciated. Continue seizure precautions. No further workup. Discharge stable with Keppra maintenance twice a day outpatient levels for Keppra outpatient follow-up with Dr. Horan 2. Autism, nonverbal. Continue Prozac 60 mg daily, Ativan as needed, Risperdal 1 mg at 8 AM and 1200, 2 mg at bedtime. 3. Hypertension. Continue clonidine 0.2 mg at bedtime 4. Seasonal ALLERGIES. Continue Claritin. 5. Obesity. 6. DVT prophylaxis. RONALD huston. Discharge plan: Return to [facility] [employer] [facility] [employer] stable Patient Condition at Discharge: Serious Plan - Discharge Summary Discharge Rx Participant: No New Discharge Prescriptions: New levETIRAcetam [Keppra] 500 mg PO Q12HR #60 tab Continue risperiDONE [RisperDAL] 1 mg PO BID@0800,1200 risperiDONE 2 mg PO HS@2099 Cetirizine HCl 10 mg PO HS@2100 Folic Acid/Multivit-Min/Lutein [Therapeutic-M Tablet] 1 tab PO DAILY@0800 FLUoxetine HCL [PROzac] 40 mg PO DAILY@0800 Minocycline HCl [Minocin] 100 mg PO DAILY@0800 LORazepam [Ativan] 1 mg PO DAILY PRN PRN Reason: Agitation Acetaminophen Tab [Tylenol] 650 mg PO Q4H PRN PRN Reason: Fever And/ Or Pain Cristiano-Tin Liquid 1 dose PO DIRECTED PRN PRN Reason: Constipation Ibuprofen [Motrin Ib] 200 mg PO Q6H PRN PRN Reason: Fever And/ Or Pain FLUoxetine HCL [PROzac] 20 mg PO DAILY@0800 cloNIDine HCL [Catapres] 0.2 mg PO HS@2100 Clindamycin Topical Soln [Cleocin-T Topical Soln] 1 applic TOPICAL BID@0800,2099 Magnesium Hydroxide [Milk of Magnesia] 2,400 mg PO DAILY PRN PRN Reason: Constipation Discharge Medication List Cetirizine HCl 10 mg PO HS@209906/11/16 [History] FLUoxetine HCL [PROzac] 40 mg PO DAILY@0806/11/16 [History] Folic Acid/Multivit-Min/Lutein [Therapeutic-M Tablet] 1 tab PO DAILY@79906/11/16 [History] risperiDONE 2 mg PO HS@209906/11/16 [History] risperiDONE [RisperDAL] 1 mg PO BID@0800,1200 06/11/16 [History] Minocycline HCl [Minocin] 100 mg PO DAILY@0800 02/20/18 [History] Acetaminophen Tab [Tylenol] 650 mg PO Q4H PRN 04/28/19 [History] Clindamycin Topical Soln [Cleocin-T Topical Soln] 1 applic TOPICAL BID@0800,209904/28/19 [History] FLUoxetine HCL [PROzac] 20 mg PO DAILY@0800 04/28/19 [History] Ibuprofen [Motrin Ib] 200 mg PO Q6H PRN 04/28/19 [History] Cristiano-Tin Liquid 1 dose PO DIRECTED PRN 04/28/19 [History] LORazepam [Ativan] 1 mg PO DAILY PRN 04/28/19 [History] Magnesium Hydroxide [Milk of Magnesia] 2,400 mg PO DAILY PRN 04/28/19 [History] cloNIDine HCL [Catapres] 0.2 mg PO HS@209904/28/19 [History] levETIRAcetam [Keppra] 500 mg PO Q12HR #60 tab 04/29/19 [Rx] Follow up Appointment(s)/Referral(s): Víctor Horan MD [Medical Doctor] - 1 Week Lorne Mckeon DO [Primary Care Provider] - 1 Week Patient Instructions/Handouts: Nonepileptic Seizures (DC) Activity/Diet/Wound Care/Special Instructions: Please call [facility] #[phone] for transportation on discharge. Paper prescription for Keppra provided on the patient chart as requested by [facility] [employer] [facility] [employer]. Discharge Disposition: OTHER INSTITUTION NOT DEFINED
== END 2019-04-30 16:16 | disposition home or self-care (01) ==
LOC: EC 16:24 → INTOOBSV 18:51 → 4MS4W 18:51 → 4SSUR 04-29 05:03
PROVIDERS: ADMIT Internal Medicine; ATTEND Internal Medicine
DX: G40.909 Epilepsy, unspecified, not intractable, without status epilepticus (principal); F84.0 Autistic disorder; I10 Essential (primary) hypertension; J30.2 Other seasonal allergic rhinitis; M19.041 Primary osteoarthritis, right hand; M19.042 Primary osteoarthritis, left hand; E66.9 Obesity, unspecified; Z68.28 Body mass index [BMI] 28.0-28.9, adult; F90.9 Attention-deficit hyperactivity disorder, unspecified type; Z79.899 Other long term (current) drug therapy
CPT/HCPCS: 96365; 99285; 36415; 93005; 80053; 85025; 72125; 70450; G0378 ×4; J1953

== ENCOUNTER → 2019-07-04 | Outpatient (CLI) | payer MEDICARE, OTHER | END | disposition home or self-care (01) | LOC: LABWHC1 09:08 | PROVIDERS: ATTEND Psychiatry & Neurology Pain Medicine | DX: G40.909 Epilepsy, unspecified, not intractable, without status epilepticus (principal); Z51.81 Encounter for therapeutic drug level monitoring | CPT/HCPCS: 36415; 80177 ==

== ENCOUNTER → 2020-07-25 | Outpatient (CLI) | payer MEDICARE, OTHER | END | disposition home or self-care (01) | LOC: LABWHC1 13:10 | PROVIDERS: ATTEND Family Medicine | DX: Z20.828 Contact with and (suspected) exposure to other viral communicable diseases (principal) | CPT/HCPCS: U0003; C9803 ==

== ENCOUNTER → 2020-08-16 | Outpatient (CLI) | payer MEDICARE, OTHER ==
[2020-08-16 12:03] LABS: Basophils % (A) 1 %; Eosinophils % (A) 1 %; HCT 52.1 % (39.0-53.0); Lymphocytes % (A) 21 %; MCH 30.9 pg (25.0-35.0); MCHC 32.7 g/dL (31.0-37.0); MCV 94.4 fL (80.0-100.0); Mean Platelet Volume 7.1; Monocytes # (A) 0.4 k/uL (0-1.0); Monocytes % (A) 7 %; Neutrophils # (A) 3.5 k/uL (1.3-7.7); Neutrophils % (A) 69 %; Platelet Count 161 k/uL (150-450); RBC 5.52 m/uL (4.30-5.90); RDW 12.7 % (11.5-15.5); WBC 5.1 k/uL (3.8-10.6)
[2020-08-16 15:00] LABS: Albumin 4.7 g/dL (3.80-4.90); Albumin/Globulin Ratio 2.04 (1.60-3.17); Bilirubin, Conjugated 0.4 mg/dL (0.20-0.40); Bilirubin,Unconjugated 0.8 mg/dL; Chol/HDL Ratio 3.06; Globulin 2.3 g/dL (1.6-3.3); LDL Cholesterol,Calculated 95.4 mg/dL (0.0-131.0); Total Bilirubin 1.2 mg/dL (0.3-1.2); VLDL Calculation 11.6 mg/dL (5.00-40.00)
[2020-08-16 15:07] LABS: T4, Free (Free Thyroxine) 1.1 ng/dL (0.80-1.80)
[2020-08-16 16:34] LABS: Hemoglobin A1C 4.5 % (4.0-6.0)
== END | disposition home or self-care (01) ==
LOC: LABWHC1 10:28
PROVIDERS: ATTEND Nurse Practitioner Family
DX: Z51.81 Encounter for therapeutic drug level monitoring (principal); Z79.899 Other long term (current) drug therapy
CPT/HCPCS: 36415; 80061; 80076; 82947; 83036; 84439; 84443; 85025

== ENCOUNTER 2021-07-01 10:43 | Emergency (ER) | payer MEDICARE, OTHER ==
[2021-07-01 12:09] VITALS: BP 105/74; PULSE 62; RESP 18; TEMP 98
--- NOTE | 2021-07-01 12:44 | ED ---
General Adult HPI - General Chief complaint: Back Pain/Injury Stated complaint: back pain Time Seen by Provider: 07/01/21 12:31 Source: Caregiver Mode of arrival: ambulatory Limitations: language barrier - History of Present Illness Initial comments: Dictation was produced using [employer] dictation software. please excuse any grammatical, word or spelling errors. Chief Complaint: 26-year-old male brought in by [facility] for possible back pain versus abdominal pain History of Present Illness: Patient is a 26-year-old male he is nonverbal at baseline. Patient has autism. Patient is brought in by [facility] staff for concerns of back pain. Patient has been noticed to be walking hunched over. Patient does very vigorous movements of jumping. They're concerned that perhaps patient hurt his back. He's been given Motrin and Tylenol. According to staff he seemingly appears much improved after the Motrin Tylenol. However they're worried that when the Motrin Tylenol wears off he starts hunching over again. Patient has not shown any signs of respiratory distress. He has had no fevers or cough. The ROS documented in this emergency department record has been reviewed and confirmed by me. Those systems with pertinent positive or negative responses have been documented in the HPI. All other systems are other negative and/or noncontributory. PHYSICAL EXAM: General Impression: Alert, follows commands, not in acute distress HEENT: Normocephalic atraumatic, extra-ocular movements intact, pupils equal and reactive to light bilaterally, mucous membranes moist. Cardiovascular: Heart regular rate and rhythm Chest: Able to complete full sentences, no retractions, no tachypnea Abdomen: abdomen soft, non-tender, non-distended, no organomegaly Musculoskeletal: Pulses present and equal in all extremities, no peripheral edema Back: No palpatory tenderness Motor: no focal deficits noted Neurological: CN II-XII grossly intact, no focal motor or sensory deficits noted Skin: Intact with no visualized rashes Psych: Normal affect and mood ED course: 26-year-old male presents with [facility] staff for concerns of back injury. vital signs upon arrival are within acceptable limits. Patient's well- appearing at bedside. Chest x-ray is unremarkable. Abdominal x-ray shows possible fecal stasis. Patient has soft abdomen on physical exam. Reevaluated bedside at 10:15 PM found to be in stable medical condition. Patient given prescription for MiraLAX. Patient discharged advised follow-up with primary care doctor. - Related Data Home Medications Medication Instructions Recorded Confirmed Cetirizine HCl 10 mg PO HS@209906/11/16 07/01/21 FLUoxetine HCL [PROzac] 40 mg PO DAILY@0800 06/11/16 07/01/21 Folic Acid/Multivit-Min/Lutein 1 tab PO DAILY@0800 06/11/16 07/01/21 [Therapeutic-M Tablet] risperiDONE 2 mg PO HS@209906/11/16 07/01/21 risperiDONE [RisperDAL] 1 mg PO BID@0800,1200 06/11/16 07/01/21 Acetaminophen Tab [Tylenol] 650 mg PO Q4H PRN 04/28/19 07/01/21 FLUoxetine HCL [PROzac] 20 mg PO DAILY@0800 04/28/19 07/01/21 Ibuprofen [Motrin Ib] 200 mg PO Q6H PRN 04/28/19 07/01/21 LORazepam [Ativan] 1 mg PO BID PRN 04/28/19 07/01/21 Magnesium Hydroxide [Milk of 2,400 mg PO DAILY PRN 04/28/19 07/01/21 Magnesia] cloNIDine HCL [Catapres] 0.2 mg PO HS@209904/28/19 07/01/21 Lacosamide [Vimpat] 200 mg PO BID@0800,2100 07/01/21 07/01/21 Midazolam [Nayzilam] 1 spray NASAL BID PRN 07/01/21 07/01/21 Stomach Relief 525/30ml 1 dose PO DIRECTED PRN 07/01/21 07/01/21 Previous Rx's Medication Instructions Recorded polyethylene glycoL 3350 [Miralax] 17 gm PO DAILY 2 Days #2 packet 07/01/21 Allergies Allergy/AdvReac Type Severity Reaction Status Date / Time No Known Allergies Allergy Verified 07/01/21 13:53 Review of Systems ROS Statement: Those systems with pertinent positive or pertinent negative responses have been documented in the HPI. ROS Other: All systems not noted in ROS Statement are negative. Past Medical History Past Medical History: Hypertension, Osteoarthritis (OA), Seizure Disorder Additional Past Medical History / Comment(s): autism, arthritis in bilat hands/fingers, oral diabetics to lose weight, father doesn't think pt diagnosed diabetic, history of seizures. History of Any Multi-Drug Resistant Organisms: None Reported Past Surgical History: No Surgical Hx Reported Additional Past Surgical History / Comment(s): extensive dental surgery Past Psychological History: ADD/ADHD Smoking Status: Never smoker Past Alcohol Use History: None Reported Past Drug Use History: None Reported - Past Family History Father Additional Family Medical History / Comment(s): Unable to obtain family history due to patient's status General Exam Limitations: language barrier Course Vital Signs 07/01/21 07/01/21 12:03 13:09 Temperature 98 F Pulse Rate 62 Respiratory 18 18 Rate Blood Pressure 105/74 O2 Sat by Pulse 97 Oximetry Disposition Clinical Impression: Constipation Disposition: HOME SELF-CARE Condition: Good Instructions (If sedation given, give patient instructions): Constipation (DC) Prescriptions: polyethylene glycoL 3350 [Miralax] 17 gm PO DAILY 2 Days #2 packet Is patient prescribed a controlled substance at d/c from ED?: No Referrals: Lorne Mckeon DO [Primary Care Provider] - 1-2 days
--- NOTE | 2021-07-01 13:27 | XR ---
EXAMINATION TYPE: XR chest 2V DATE OF EXAM: 07/01/2021 CLINICAL HISTORY: Chest and back pain TECHNIQUE: Frontal and lateral views of the chest are obtained. COMPARISON: None FINDINGS: Low lung volumes and/or aspiration. There is no focal air space opacity, pleural effusion, or pneumothorax seen. The cardiac silhouette size is upper limits of normal. The osseous structur es are intact. IMPRESSION: Poor inspiration without acute infiltrate.
--- NOTE | 2021-07-01 13:28 | XR ---
Abdomen HISTORY: Pain Frontal view of the abdomen and 2 images Probable phleboliths present within the pelvis. There is no evident bowel obstruction or pneumoperito neum. Bone mineralization is normal. Lung bases not included on the exam. There is retained fecal dorothea ris throughout the distribution of the colon. IMPRESSION: Correlate for possible fecal stasis.
== END 2021-07-01 14:48 | disposition home or self-care (01) ==
LOC: EC 10:43
DX: K59.00 Constipation, unspecified (principal); F84.0 Autistic disorder; I10 Essential (primary) hypertension; M19.041 Primary osteoarthritis, right hand; M19.042 Primary osteoarthritis, left hand; G40.909 Epilepsy, unspecified, not intractable, without status epilepticus; F90.9 Attention-deficit hyperactivity disorder, unspecified type; Z79.899 Other long term (current) drug therapy
CPT/HCPCS: 71046; 74018; 93005; 99284

== ENCOUNTER → 2022-01-30 | Outpatient (CLI) | payer MEDICARE, OTHER ==
[2022-01-30 18:11] LABS: Basophils # (A) 0.04 X 10*3/uL (0.00-0.10); Basophils % (A) 0.8 %; Eosinophils # (A) 0.07 X 10*3/uL (0.04-0.35); Eosinophils % (A) 1.4 %; HCT 51.7 % (39.6-50.0); HGB 17.1 g/dL (13.0-17.0); Immature Grans, Automated 0.2 %; Lymphocytes # (A) 1.48 X 10*3/uL (0.90-5.00); MCH 31.5 pg (27.0-32.0); MCHC 33.1 g/dL (32.0-37.0); MCV 95.2 fL (80.0-97.0); Monocytes # (A) 0.35 X 10*3/uL (0.20-1.00); Monocytes % (A) 6.9 %; NRBC Per 100 WBC 0 /100 WBCS (0.0-0.0); Neutrophils # (A) 3.15 X 10*3/uL (1.80-7.70); Neutrophils % (A) 61.7 %; Platelet Count 171 X 10*3/uL (140-440); RBC 5.43 X 10*6/uL (4.40-5.60); RDW 12.4 % (11.5-14.5)
[2022-01-30 18:14] LABS: ALT 19 U/L (10-49); AST 29 U/L (14-35); African American GFR (CKD) 118.2 (60.0-200.0); Albumin 4.5 g/dL (3.8-4.9); Albumin/Globulin Ratio 1.96 (1.60-3.17); Alkaline Phosphatase 82 U/L (41-126); Bilirubin, Conjugated 0.22 mg/dL (0.20-0.40); Bilirubin,Unconjugated 0.58 mg/dL (0.20-1.00); Blood Urea Nitrogen 9.3 mg/dL (9.0-27.0); Chol/HDL Ratio 3.45 Ratio; Globulin 2.3 g/dL (1.6-3.3); Glucose 78 mg/dL (70-110); Total Protein 6.8 g/dL (6.2-8.2); VLDL Calculation 15.42 mg/dL (5.00-40.00)
== END | disposition home or self-care (01) ==
LOC: LABWHC1 11:33
PROVIDERS: ATTEND Nurse Practitioner Family
DX: Z79.899 Other long term (current) drug therapy (principal)
CPT/HCPCS: 36415; 80061; 80076; 82565; 82947; 83036; 84439; 84443; 84520; 85025

== ENCOUNTER → 2022-10-02 | Outpatient (CLI) | payer MEDICARE, OTHER | END | disposition home or self-care (01) | LOC: LABWHC1 09:37 | PROVIDERS: ATTEND Nurse Practitioner Family | DX: Z79.899 Other long term (current) drug therapy (principal) | CPT/HCPCS: 36415 ==

== ENCOUNTER 2022-12-24 20:51 | Emergency (ER) | payer MEDICARE, OTHER ==
[2022-12-24 21:06] VITALS: BP 115/73; TEMP 98.6
[2022-12-24] MEDS ORDERED: SODIUM CHLORIDE 0.9% 1,000 ML IV STA (21:37)
--- NOTE | 2022-12-24 21:57 | XR ---
EXAMINATION TYPE: XR chest 2V DATE OF EXAM: 12/24/2022 9:47 PM COMPARISON: Chest radiographs from 07/01/2021 TECHNIQUE: XR chest 2V Frontal and lateral views of the chest. CLINICAL INDICATION:Male, 27 years old with history of AMS; FINDINGS: Lungs/Pleura: There is no evidence of pleural effusion, focal consolidation, or pneumothorax. Pulmonary vascularity: Unremarkable. Heart/mediastinum: Cardiomediastinal silhouette is unremarkable. Musculoskeletal: No acute osseous pathology. IMPRESSION: No acute cardiopulmonary disease/process.
[2022-12-24 21:59] LABS: Basophils % (A) 1 %; Eosinophils # (A) 0.1 k/uL (0-0.7); Eosinophils % (A) 1 %; Lymphocytes # (A) 1.6 k/uL (1.0-4.8); Lymphocytes % (A) 22 %; MCHC 34.1 g/dL (31.0-37.0); MCV 93.7 fL (80.0-100.0); Mean Platelet Volume 7.4; Monocytes # (A) 0.4 k/uL (0-1.0); Monocytes % (A) 6 %; Neutrophils # (A) 5.2 k/uL (1.3-7.7); Neutrophils % (A) 70 %; Platelet Count 169 k/uL (150-450); RDW 12.2 % (11.5-15.5); WBC 7.4 k/uL (3.8-10.6)
[2022-12-24 22:15] LABS: ALT 21 U/L (4-49); AST 37 U/L (17-59); African American GFR (CKD) >90 (>60 ml/min/1.73 sqM); Albumin 3.7 g/dL (3.5-5.0); Alkaline Phosphatase 69 U/L (38-126); Anion Gap 5 mmol/L; Blood Urea Nitrogen 14 mg/dL (9-20); Calcium 8.7 mg/dL (8.4-10.2); Carbon Dioxide 26 mmol/L (22-30); Chloride 106 mmol/L (98-107); Glucose 130 mg/dL (74-99); Non-African American GFR(CKD) >90 (>60 ml/min/1.73 sqM); Potassium 4.2 mmol/L (3.5-5.1); Sodium 137 mmol/L (137-145); Total Bilirubin 0.6 mg/dL (0.2-1.3)
[2022-12-24 23:11] VITALS: PULSE 61; RESP 14
[2022-12-24 23:17] LABS: Appearance,Urine Clear (Clear); Bilirubin,Urine Negative (Negative); Blood,Urine Negative (Negative); Color,Urine Light Yellow; Glucose,Urine (UA) Negative (Negative); Ketones,Urine Negative (Negative); Leukocyte Esterase,Urine Negative (Negative); Nitrite,Urine Negative (Negative); PH, Urine 6.5 (5.0-8.0); Protein,Urine Negative (Negative); Specific Gravity,Urine 1.011 (1.001-1.035); Urobilinogen,Urine <2.0 mg/dL (<2.0)
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
== END 2022-12-24 23:49 | disposition home or self-care (01) ==
LOC: EC 20:51
DX: R45.1 Restlessness and agitation (principal); I10 Essential (primary) hypertension; E11.9 Type 2 diabetes mellitus without complications; M19.041 Primary osteoarthritis, right hand; M19.042 Primary osteoarthritis, left hand; Z79.899 Other long term (current) drug therapy
CPT/HCPCS: 36415; 71046; 80053; 81003; 85025; 96360; 99285

== ENCOUNTER → 2023-03-31 | Outpatient (CLI) | payer MEDICARE, OTHER ==
[2023-03-31 20:23] LABS: ALT 20 U/L (10-49); AST 27 U/L (14-35); Albumin 4.7 d/dL (3.8-4.9); Albumin/Globulin Ratio 1.96 Ratio (1.60-3.17); Alkaline Phosphatase 87 U/L (41-126); Bilirubin, Conjugated <0.20 mg/dL (0.20-0.40); Bilirubin,Unconjugated >0.30 mg/dL (0.20-1.00); Blood Urea Nitrogen 11.6 mg/dL (9.0-27.0); Chol/HDL Ratio 3.75 Ratio; Globulin 2.4 d/dL (1.6-3.3); Glucose 77 mg/dL (70-110); LDL Cholesterol,Calculated 111.1 mg/dL (0.0-131.0); T4, Free (Free Thyroxine) 1.06 ng/dL (0.80-1.80); Total Bilirubin 0.5 mg/dL (0.3-1.2); Total Protein 7.1 d/dL (6.2-8.2); VLDL Calculation 15.02 mg/dL (5.00-40.00)
[2023-03-31 22:09] LABS: Basophils # (A) 0.03 X 10*3/uL (0.00-0.10); Basophils % (A) 0.6 %; Eosinophils # (A) 0.07 X 10*3/uL (0.04-0.35); Eosinophils % (A) 1.4 %; HCT 51.5 % (39.6-50.0); HGB 17.1 d/dL (12.0-15.0); Lymphocytes # (A) 1.37 X 10*3/uL (0.90-5.00); Lymphocytes % (A) 27.1 %; MCHC 33.2 d/dL (32.0-37.0); MCV 96.3 FL (80.0-97.0); Mean Platelet Volume 10.9 FL (9.5-12.2); Monocytes # (A) 0.29 X 10*3/uL (0.20-1.00); Monocytes % (A) 5.7 %; NRBC Per 100 WBC 0 X 10*3/uL (0.00-0.01); Neutrophils # (A) 3.28 X 10*3/uL (1.80-7.70); Platelet Count 171 X 10*3/uL (140-440); RBC 5.35 X 10*6/uL (4.40-5.60); RDW 12.2 % (11.5-14.5); WBC 5.05 X 10*3/uL (4.50-10.00)
== END | disposition home or self-care (01) ==
LOC: LABWHC1 11:54
PROVIDERS: ATTEND Nurse Practitioner Family
DX: Z79.899 Other long term (current) drug therapy (principal)
CPT/HCPCS: 36415; 80061; 80076; 82565; 82947; 83036; 84439; 84443; 84520; 85025

== ENCOUNTER → 2024-03-14 | Outpatient (CLI) | payer MEDICARE, OTHER ==
[2024-03-14 19:19] LABS: Basophils # (A) 0.03 X 10*3/uL (0.00-0.10); Basophils % (A) 0.4 %; Eosinophils # (A) 0.07 X 10*3/uL (0.04-0.35); Eosinophils % (A) 0.9 %; HCT 51.8 % (39.6-50.0); HGB 17.2 g/dL (13.0-17.0); Lymphocytes % (A) 22.8 %; MCH 31.9 pg (27.0-32.0); MCHC 33.2 g/dL (32.0-37.0); MCV 96.1 FL (80.0-97.0); Mean Platelet Volume 10.6 FL (9.5-12.2); Monocytes # (A) 0.41 X 10*3/uL (0.20-1.00); Monocytes % (A) 5.5 %; NRBC Per 100 WBC 0 X 10*3/uL (0.00-0.01); Neutrophils # (A) 5.22 X 10*3/uL (1.80-7.70); Neutrophils % (A) 70.3 %; Platelet Count 188 X 10*3/uL (140-440); RBC 5.39 X 10*6/uL (4.40-5.60); RDW 12.1 % (11.5-14.5); WBC 7.44 X 10*3/uL (4.50-10.00)
[2024-03-14 20:06] LABS: ALT 21 U/L (10-49); AST 28 U/L (14-35); Albumin 4.6 g/dL (3.8-4.9); Alkaline Phosphatase 95 U/L (41-126); Bilirubin, Conjugated <0.20 mg/dL (0.20-0.40); Bilirubin,Unconjugated >0.30 mg/dL (0.20-1.00); Blood Urea Nitrogen 11.3 mg/dL (9.0-27.0); Chol/HDL Ratio 3.83 Ratio; Globulin 2.3 g/dL (1.6-3.3); Glucose 81 mg/dL (70-110); LDL Cholesterol,Calculated 115.7 mg/dL (0.0-131.0); T4, Free (Free Thyroxine) 1.07 ng/dL (0.80-1.80); Total Bilirubin 0.5 mg/dL (0.3-1.2); Total Protein 6.9 g/dL (6.2-8.2)
== END | disposition home or self-care (01) ==
LOC: LABWHC1 10:37
PROVIDERS: ATTEND Nurse Practitioner Family
DX: Z51.81 Encounter for therapeutic drug level monitoring (principal); Z79.899 Other long term (current) drug therapy
CPT/HCPCS: 36415; 80061; 80076; 82306; 82565; 82947; 83036; 84146; 84439; 84443; 84520; 85025

== ENCOUNTER → 2024-09-15 | Outpatient (CLI) | payer MEDICARE, OTHER ==
[2024-09-15 15:41] LABS: Chol/HDL Ratio 4.01 Ratio; LDL Cholesterol,Calculated 119.3 mg/dL (0.0-131.0)
== END | disposition home or self-care (01) ==
LOC: LABWHC1 10:18
PROVIDERS: ATTEND Nurse Practitioner Family
DX: Z79.899 Other long term (current) drug therapy (principal)
CPT/HCPCS: 36415; 80061; 83036; 84146